=== PATIENT | male | born 2000 | race American Indian/Alaskan Native ===

== ENCOUNTER 2021-02-24 14:15 | Emergency (ER) | payer OTHER ==
--- NOTE | 2021-02-24 14:58 | Event Note ---
ED Screening Note Date of service: 02/24/21 Time: 14:53 ED Screening Note: 20-year-old -[place]oc[place] male presents to the emergency room stating he saw dark maroon-like blood in his stool x2. Patient reports has a history of ulcerative colitis. Patient is being treated for for UC. Admits to an abdominal pain and nausea. This initial assessment/diagnostic orders/clinical plan/treatment(s) is/are subject to change based on patients health status, clinical progression and re- assessment by fellow clinical providers in the ED. Further treatment and workup at subsequent clinical providers discretion. Patient/guardian urged not to elope from the ED as their condition may be serious if not clinically assessed and managed. Initial orders include:
[2021-02-24 15:33] LABS: Basophils # (Auto) 0.1 K/mm3 (0.0-0.1); Basophils % (Auto) 0.7 % (0.0-1.8); Eosinophils # (Auto) 0.1 K/mm3 (0.0-0.4); Eosinophils % (Auto) 0.9 % (0.0-4.3); Hematocrit 41.7 % (35.5-45.6); Hemoglobin 13.8 gm/dl (11.8-15.2); Lymphocytes # (Auto) 2.2 K/mm3 (1.2-5.4); Lymphocytes % (Auto) 22.9 % (13.4-35.0); Mean Corpuscular HGB Conc 33 % (32-34); Mean Corpuscular Volume 82 fl (84-94); Monocytes # (Auto) 0.7 K/mm3 (0.0-0.8); Platelet Count 238 K/mm3 (140-440); Red Blood Count 5.09 M/mm3 (3.65-5.03); Red Cell Distribution Width 16.6 % (13.2-15.2)
[2021-02-24 15:40] LABS: Alanine Aminotransferase 23 units/L (7-56); Albumin 4.2 g/dL (3.9-5); BUN/Creatinine Ratio 20; Blood Urea Nitrogen 16 mg/dL (9-20); Calcium 9.1 mg/dL (8.4-10.2); Hemolysis Index 7
--- NOTE | 2021-02-24 17:16 | Emergency Department Report ---
ED Abdominal Pain HPI - General Chief Complaint: Weakness Stated Complaint: ULCERATIVE COLITIS Time Seen by Provider: 02/24/21 17:02 Source: patient Mode of arrival: Ambulatory Limitations: No Limitations - History of Present Illness Initial Comments: 20-year-old male with a past medical history of ulcerative colitis presents to the hospital with pain abdominal pain intermittent bloody stools for the last 2 weeks. Patient complains of sharp constant pain across his abdomen that is rated 6/10 in intensity and worse with palpation. Over the last 2 weeks patient has seen "a little" blood in his stool. Patient did have a bowel movement today without any bloody stool. Patient denies nausea, vomiting, or fever. He has been having intermittent lightheadedness with decreased appetite and expressed concern that he may be anemic. His ulcerative colitis was diagnosed 1 year ago when he was having increased episodes of bloody diarrhea and abdominal pain via endoscopy. He does not currently take any specific ulcerative colitis medication, NSAIDs, aspirin, or follow with a GI specialist. Patient denies frequent stools or diarrhea at this time and feels like he is more constipated. Patient taken Tylenol intermittently for pain - Related Data Allergies Allergy/AdvReac Type Severity Reaction Status Date / Time No Known Allergies Allergy Unverified 02/24/21 14:45 ED Review of Systems ROS: Stated complaint: ULCERATIVE COLITIS Other details as noted in HPI Comment: All other systems reviewed and negative ED Past Medical Hx - Past Medical History Previous Medical History?: Yes Additional medical history: psoriasis, ulcerative colitis - Surgical History Past Surgical History?: No - Social History Smoking Status: Never Smoker Substance Use Type: None ED Physical Exam - General Limitations: No Limitations - Other Other exam information: General: No acute distress Head: Atraumatic Eyes: normal appearance ENT: Moist mucous membranes Neck: Normal appearance, no midline tenderness Chest: Clear to auscultation bilaterally CV: Regular rate and rhythm Abdomen: Soft, normal bowel sounds, mild right upper quadrant tenderness without rebound or guarding, nondistended, no rebound or guarding Rectal: No external hemorrhoids, brown stool, faintly guaiac positive, no gross blood or melena Back: Normal inspection Extremity: Normal inspection, full range of motion Neuro: Alert O x 3, no facial asymmetry, speech clear, no gross motor sensory deficit Psych: Appropriate behavior Skin: No rash ED Course Vital Signs 02/24/21 14:47 Temperature 98.3 F Pulse Rate 81 Respiratory 18 Rate Blood Pressure 97/59 O2 Sat by Pulse 98 Oximetry ED Medical Decision Making - Lab Data Result diagrams: 02/24/21 15:07 02/24/21 15:07 Lab Results 02/24/21 02/24/21 Range/Units 15:07 15:07 WBC 9.4 (4.5-11.0) K/mm3 RBC 5.09 H (3.65-5.03) M/mm3 Hgb 13.8 (11.8-15.2) gm/dl Hct 41.7 (35.5-45.6) % MCV 82 L (84-94) fl MCH 27 L (28-32) pg MCHC 33 (32-34) % RDW 16.6 H (13.2-15.2) % Plt Count 238 (140-440) K/mm3 Lymph % (Auto) 22.9 (13.4-35.0) % [place] % (Auto) 7.0 (0.0-7.3) % Eos % (Auto) 0.9 (0.0-4.3) % Baso % (Auto) 0.7 (0.0-1.8) % Lymph # (Auto) 2.2 (1.2-5.4) K/mm3 [place] # (Auto) 0.7 (0.0-0.8) K/mm3 Eos # (Auto) 0.1 (0.0-0.4) K/mm3 Baso # (Auto) 0.1 (0.0-0.1) K/mm3 Seg Neutrophils % 68.5 (40.0-70.0) % Seg Neutrophils # 6.5 (1.8-7.7) K/mm3 Sodium 138 (137-145) mmol/L Potassium 3.8 (3.6-5.0) mmol/L Chloride 104.7 (98-107) mmol/L Carbon Dioxide 26 (22-30) mmol/L Anion Gap 11 mmol/L BUN 16 (9-20) mg/dL Creatinine 0.8 (0.8-1.3) mg/dL Estimated GFR > 60 ml/min BUN/Creatinine Ratio 20 % Glucose 91 (75-100) mg/dL Calcium 9.1 (8.4-10.2) mg/dL Total Bilirubin 0.20 (0.1-1.2) mg/dL AST 19 (5-40) units/L ALT 23 (7-56) units/L Alkaline Phosphatase 106 (35-129) units/L Total Protein 6.8 (6.3-8.2) g/dL Albumin 4.2 (3.9-5) g/dL Albumin/Globulin Ratio 1.6 % Lipase 22 (13-60) units/L - Medical Decision Making 20-year-old male with a past medical history of ulcerative colitis presents to the hospital with intermittent sharp abdominal pain and intermittent bloody stools with concerns of anemia. Clinically does not appear to patient is having also colitis for since he lacks repeat episodes of bloody diarrhea. There are no signs of anemia. His stool is faintly guaiac positive, brown, and without melena or gross hematochezia. Patient's other labs are unremarkable. Patient will be discharged home with outpatient GI follow-up Critical Care Time: No Critical care attestation.: If time is entered above; I have spent that time in minutes in the direct care of this critically ill patient, excluding procedure time. ED Disposition Clinical Impression: Blood in stool, History of ulcerative colitis Disposition: TO HOME OR SELFCARE Is pt being admited?: No Does the pt Need Aspirin: No Condition: Stable Instructions: Lower Gastrointestinal Bleeding, Ulcerative Colitis, Adult Additional Instructions: Avoid NSAIDs, aspirin, ibuprofen, and Motrin. Follow-up with your doctor or doctor/clinic provided. It is very important you follow-up with a GI spe cialist. Return if symptoms worsen as indicated by your discharge instructions. Increase Tylenol for pain Referrals: PRIMARY MD AUGUSTINA [Primary Care Provider] - 3-5 Days [facility] [Provider Group] - 3-5 Days (Primary care clinic) [facility] [Provider Group] - 3-5 Days (GI specialist) Time of Disposition: 17:18
[2021-02-24 17:53] VITALS: BP 100/68
== END 2021-02-24 17:52 | disposition home or self-care (01) ==
LOC: ED 14:15
DX: K92.1 Melena (principal); Z87.19 Personal history of other diseases of the digestive system
CPT/HCPCS: 36415; 80053; 82271; 83690; 85025

== ENCOUNTER 2021-03-16 09:59 | Emergency (ER) | payer OTHER ==
[2021-03-16 10:11] VITALS: BP 97/58
--- NOTE | 2021-03-16 10:41 | Event Note ---
ED Screening Note ED Screening Note: hx of ulcerative colitis has an appt with Dr. Payne on 03/22/2021 not currently on medication states he has LLQ abd pain no fever no vomiting +mild diarrhea +intermittent blood in the stool PMHx psoriasis no allergies to meds PSHx spinal fusion This initial assessment/diagnostic orders/clinical plan/treatment(s) is/are subject to change based on patients health status, clinical progression and re- assessment by fellow clinical providers in the ED. Further treatment and workup at subsequent clinical providers discretion. Patient/guardian urged not to elope from the ED as their condition may be serious if not clinically assessed and managed. Initial orders include: labs, UA
--- NOTE | 2021-03-16 11:14 | Emergency Department Report ---
HPI - General Chief Complaint: GI Bleed Time Seen by Provider: 03/16/21 10:40 - HPI HPI: This is a 20-year-old -[place]is[place] male who presents to the emergency department with complaint of some left upper flank pain that has been going on for the past few days, as well as some intermittent bright red blood with bowel movements. The patient has a history of ulcerative colitis and has an appointment to establish care with Dr. Jackson on March 22, in about 1 week. The patient was here on 02/24 for similar symptoms. At that time he had a rectal examination that showed lightly guaiac positive stool without melena or hematochezia, and he had a hemoglobin of about 13. The patient has been taking Tylenol for pain and making sure to avoid NSAIDs. He denies any fever, constipation or diarrhea, back pain, dysuria. No recent travel or sick contacts at home. Currently the flank pain is about 5 out of 10 in intensity. No known aggravating or alleviating factors. ED Past Medical Hx - Past Medical History Previous Medical History?: No Additional medical history: psoriasis, ulcerative colitis - Surgical History Past Surgical History?: Yes Additional Surgical History: spinal fusion - Social History Smoking Status: Never Smoker Substance Use Type: None - Medications Home Medications: Home Medications Medication Instructions Recorded Confirmed Last Taken Type Omeprazole 20 mg PO QDAY #20 capsule. 03/16/21 Unknown Rx ED Review of Systems ROS: Stated complaint: BLEEDING DURNING BOWEL MOVEMENT Other details as noted in HPI Comment: All other systems reviewed and negative Constitutional: denies: chills, fever Eyes: denies: eye pain, vision change ENT: denies: ear pain, throat pain Respiratory: denies: cough, shortness of breath Cardiovascular: denies: chest pain, palpitations Gastrointestinal: abdominal pain (left upper flank pain). denies: nausea, vomiting, melena Genitourinary: denies: dysuria, discharge Musculoskeletal: denies: back pain, arthralgia Skin: denies: rash, lesions Neurological: denies: headache, weakness Physical Exam - Physical Exam Vital Signs: Vital Signs 03/16/21 10:10 Temperature 98.4 F Pulse Rate 89 Respiratory 16 Rate Blood Pressure 97/58 O2 Sat by Pulse 97 Oximetry Physical Exam: GENERAL: The patient is well-developed well-nourished. HENT: Normocephalic. Atraumatic. Patient has moist mucous membranes. EYES: Extraocular motions are intact. NECK: Supple. Trachea is midline. CHEST/LUNGS: Clear to auscultation. There is no respiratory distress noted. HEART/CARDIOVASCULAR: Regular. There is no tachycardia. ABDOMEN: Abdomen is soft, nontender. Patient has normal bowel sounds. There is no abdominal distention. Unable to reproduce flank pain to palpation. SKIN: Skin is warm and dry. NEURO: The patient is awake, alert, and oriented. The patient is cooperative. The patient has no focal neurologic deficits. Normal speech. MUSCULOSKELETAL: There is no tenderness or deformity. There is no limitation range of motion. BACK: No CVA tenderness to palpation. RECTAL: Brown stool. No gross hematochezia or melena. Stool negative on guaiac testing. ED Course Vital Signs 03/16/21 10:10 Temperature 98.4 F Pulse Rate 89 Respiratory 16 Rate Blood Pressure 97/58 O2 Sat by Pulse 97 Oximetry ED Medical Decision Making - Lab Data Result diagrams: 03/16/21 10:48 03/16/21 10:48 Lab Results 03/16/21 03/16/21 03/16/21 Range/Units 10:48 10:48 11:28 WBC 8.7 (4.5-11.0) K/mm3 RBC 5.27 H (3.65-5.03) M/mm3 Hgb 14.8 (11.8-15.2) gm/dl Hct 44.4 (35.5-45.6) % MCV 84 (84-94) fl MCH 28 (28-32) pg MCHC 33 (32-34) % RDW 17.3 H (13.2-15.2) % Plt Count 215 (140-440) K/mm3 Lymph % (Auto) 23.5 (13.4-35.0) % Major % (Auto) 7.0 (0.0-7.3) % Eos % (Auto) 0.9 (0.0-4.3) % Baso % (Auto) 0.6 (0.0-1.8) % Lymph # (Auto) 2.1 (1.2-5.4) K/mm3 Major # (Auto) 0.6 (0.0-0.8) K/mm3 Eos # (Auto) 0.1 (0.0-0.4) K/mm3 Baso # (Auto) 0.0 (0.0-0.1) K/mm3 Seg Neutrophils % 68.0 (40.0-70.0) % Seg Neutrophils # 5.9 (1.8-7.7) K/mm3 PT 12.9 (12.2-14.9) Sec. INR 0.99 (0.87-1.13) Sodium 139 (137-145) mmol/L Potassium 4.0 (3.6-5.0) mmol/L Chloride 104.2 (98-107) mmol/L Carbon Dioxide 25 (22-30) mmol/L Anion Gap 14 mmol/L BUN 12 (9-20) mg/dL Creatinine 0.9 (0.8-1.3) mg/dL Estimated GFR > 60 ml/min BUN/Creatinine Ratio 13 % Glucose 89 (75-100) mg/dL Calcium 9.4 (8.4-10.2) mg/dL Total Bilirubin 0.30 (0.1-1.2) mg/dL AST 20 (5-40) units/L ALT 19 (7-56) units/L Alkaline Phosphatase 113 (35-129) units/L Total Protein 7.4 (6.3-8.2) g/dL Albumin 4.5 (3.9-5) g/dL Albumin/Globulin Ratio 1.6 % Lipase 20 (13-60) units/L Urine Color (Yellow) Urine Turbidity (Clear) Urine pH (5.0-7.0) Ur Specific Banks (1.003-1.030) Urine Protein (Negative) mg/dL Urine Glucose (UA) (Negative) mg/dL Urine Ketones (Negative) mg/dL Urine Blood (Negative) Urine Nitrite (Negative) Urine Bilirubin (Negative) Urine Urobilinogen (<2.0) mg/dL Ur Leukocyte Esterase (Negative) Urine WBC (Auto) (0.0-6.0) /HPF Urine RBC (Auto) (0.0-6.0) /HPF U Epithel Cells (Auto) (0-13.0) /HPF Urine Mucus /HPF 04/16/21 Range/Units Unknown WBC (4.5-11.0) K/mm3 RBC (3.65-5.03) M/mm3 Hgb (11.8-15.2) gm/dl Hct (35.5-45.6) % MCV (84-94) fl MCH (28-32) pg MCHC (32-34) % RDW (13.2-15.2) % Plt Count (140-440) K/mm3 Lymph % (Auto) (13.4-35.0) % Major % (Auto) (0.0-7.3) % Eos % (Auto) (0.0-4.3) % Baso % (Auto) (0.0-1.8) % Lymph # (Auto) (1.2-5.4) K/mm3 Major # (Auto) (0.0-0.8) K/mm3 Eos # (Auto) (0.0-0.4) K/mm3 Baso # (Auto) (0.0-0.1) K/mm3 Seg Neutrophils % (40.0-70.0) % Seg Neutrophils # (1.8-7.7) K/mm3 PT (12.2-14.9) Sec. INR (0.87-1.13) Sodium (137-145) mmol/L Potassium (3.6-5.0) mmol/L Chloride (98-107) mmol/L Carbon Dioxide (22-30) mmol/L Anion Gap mmol/L BUN (9-20) mg/dL Creatinine (0.8-1.3) mg/dL Estimated GFR ml/min BUN/Creatinine Ratio % Glucose (75-100) mg/dL Calcium (8.4-10.2) mg/dL Total Bilirubin (0.1-1.2) mg/dL AST (5-40) units/L ALT (7-56) units/L Alkaline Phosphatase (35-129) units/L Total Protein (6.3-8.2) g/dL Albumin (3.9-5) g/dL Albumin/Globulin Ratio % Lipase (13-60) units/L Urine Color Yellow (Yellow) Urine Turbidity Clear (Clear) Urine pH 5.0 (5.0-7.0) Ur Specific Banks 1.026 (1.003-1.030) Urine Protein 30 mg/dl (Negative) mg/dL Urine Glucose (UA) Neg (Negative) mg/dL Urine Ketones Neg (Negative) mg/dL Urine Blood Neg (Negative) Urine Nitrite Neg (Negative) Urine Bilirubin Neg (Negative) Urine Urobilinogen 2.0 (<2.0) mg/dL Ur Leukocyte Esterase Neg (Negative) Urine WBC (Auto) 1.0 (0.0-6.0) /HPF Urine RBC (Auto) 2.0 (0.0-6.0) /HPF U Epithel Cells (Auto) 1.0 (0-13.0) /HPF Urine Mucus 3+ /HPF - Medical Decision Making This patient presents to the emergency department with some left upper flank pain, near the left upper quadrant of the abdomen, as well as some rectal bleeding seen during bowel movements. The abdomen is soft, nondistended and nontoxic in appearance. Patient's labs have been unremarkable. His hemoglobin is greater than 14, which is actually increased from his last visit here a month ago for rectal bleeding a s well. The rest of the labs are unremarkable as well including metabolic panel, coags. Abdominal x-ray shows nonspecific nonobstructive bowel gas and no free air. Vital signs stable throughout his ED course including being afebrile. A rectal examination was done without any external hemorrhoids or lesions seen. Patient has brown stool without melena or gross hematochezia. The stool obtained was negative on guaiac testing today. For all these reasons the patient appears safe for discharge home at this time. He has an appointment in about [address] Jackson, gastroenterology. He has been placed on a PPI. He will return to the emergency department with any worsening of his symptoms or with any acute distress. Critical Care Time: No Critical care attestation.: If time is entered above; I have spent that time in minutes in the direct care of this critically ill patient, excluding procedure time. ED Disposition Clinical Impression: History of ulcerative colitis, Flank pain, Rectal bleeding Disposition: DC-01 TO HOME OR SELFCARE Is pt being admited?: No Condition: Stable Instructions: Rectal Bleeding, Abdominal Pain, Adult, Flank Pain, Adult Additional Instructions: Please follow-up with a primary care physician in the next few days. Please follow-up with gastroenterology as previously scheduled. Return to the emergency department with any worsening of your symptoms, new or concerning symptoms not addressed during this current emergency department visit, or with any acute distress. Prescriptions: Omeprazole 20 mg PO QDAY #20 capsule. Referrals: PRIMARY CARE, [Primary Care Provider] - 3-5 Days SUSAN JACKSON MD [Staff Physician] - 3-5 Days Forms: Work/School Release Form(ED) Time of Disposition: 12:53
[2021-03-16 11:49] LABS: Bilirubin,Urine NEG (Negative); Blood,Urine NEG (Negative); Color,Urine Yellow (Yellow); Mucus,Urine 3+ /HPF
[2021-03-16 11:51] LABS: Alanine Aminotransferase 19 units/L (7-56); Albumin 4.5 g/dL (3.9-5); BUN/Creatinine Ratio 13; Blood Urea Nitrogen 12 mg/dL (9-20); Calcium 9.4 mg/dL (8.4-10.2); Hemolysis Index 12
[2021-03-16 11:52] LABS: Basophils % (Auto) 0.6 % (0.0-1.8); Eosinophils # (Auto) 0.1 K/mm3 (0.0-0.4); Eosinophils % (Auto) 0.9 % (0.0-4.3); Hematocrit 44.4 % (35.5-45.6); Hemoglobin 14.8 gm/dl (11.8-15.2); Lymphocytes # (Auto) 2.1 K/mm3 (1.2-5.4); Lymphocytes % (Auto) 23.5 % (13.4-35.0); Mean Corpuscular HGB Conc 33 % (32-34); Mean Corpuscular Volume 84 fl (84-94); Monocytes # (Auto) 0.6 K/mm3 (0.0-0.8); Platelet Count 215 K/mm3 (140-440); Red Blood Count 5.27 M/mm3 (3.65-5.03); Red Cell Distribution Width 17.3 % (13.2-15.2)
--- NOTE | 2021-03-16 11:54 | XRay Report ---
ABDOMEN 1 VIEW(S) INDICATION / CLINICAL INFORMATION: Abd pain. COMPARISON: None available. FINDINGS: TUBES / LINES: None. BOWEL GAS PATTERN/EXTRALUMINAL GAS: No significant abnormality. No pneumatosis or secondary signs of free air. ADDITIONAL FINDINGS: Previous fixation of the lower lumbar spine and sacroiliac joints. IMPRESSION: 1. No acute findings. Signer Name: Minor Telles MD Signed: 03/16/2021 11:49 AM Workstation Name: [id number]
[2021-03-16] MEDS ORDERED: PANTOPRAZOLE 40 MG TAB PO ONE (11:58)
[2021-03-16 12:08] LABS: INR 0.99 (0.87-1.13)
== END 2021-03-16 13:03 | disposition home or self-care (01) ==
LOC: ED 09:59
DX: K62.5 Hemorrhage of anus and rectum (principal); K51.80 Other ulcerative colitis without complications; Z79.899 Other long term (current) drug therapy
CPT/HCPCS: 36415; 74019; 80053; 81001; 83690; 85025; 85610; 99283

== ENCOUNTER 2021-05-11 08:56 | Emergency (ER) | payer OTHER ==
[2021-05-11 10:27] VITALS: BP 120/72
== END 2021-05-11 09:30 | disposition left against medical advice (07) ==
LOC: ED 08:56
DX: S91.312A Laceration without foreign body, left foot, initial encounter (principal); M54.5 Low back pain; Z53.21 Procedure and treatment not carried out due to patient leaving prior to being seen by health care provider; X58.XXXA Exposure to other specified factors, initial encounter; Y93.89 Activity, other specified; Y92.89 Other specified places as the place of occurrence of the external cause; Y99.8 Other external cause status

== ENCOUNTER 2022-01-10 12:02 | Emergency (ER) | payer SELFPAY ==
[2022-01-10 12:43] VITALS: BP 99/47
== END 2022-01-10 22:59 | disposition left against medical advice (07) ==
LOC: ED 12:02
DX: K51.90 Ulcerative colitis, unspecified, without complications (principal); Z53.21 Procedure and treatment not carried out due to patient leaving prior to being seen by health care provider

== ENCOUNTER 2022-01-31 17:19 | Emergency (ER) | payer SELFPAY | END 2022-01-31 18:30 | disposition home or self-care (01) | LOC: ED 17:19 | DX: M54.9 Dorsalgia, unspecified (principal); Z53.21 Procedure and treatment not carried out due to patient leaving prior to being seen by health care provider ==